=== PATIENT | female | born 1970 | race Native Hawaiian/Other Pacific Islander ===

== ENCOUNTER → 2016-09-16 09:27 | Outpatient (CLI) | payer OTHER, BC | LOC: AMB 09:27 | DX: Z04.1 Encounter for examination and observation following transport accident (principal) ==

== ENCOUNTER 2016-09-16 12:08 | Emergency (ER) | payer BC, OTHER ==
[~2016-09-16] VITALS: Ht 157.5 cm; Wt 102.1 kg
== END 2016-09-16 13:13 | disposition home or self-care (01) ==
LOC: ED 12:08
DX: S60.212A Contusion of left wrist, initial encounter (principal); V49.40XA Driver injured in collision with unspecified motor vehicles in traffic accident, initial encounter; Y92.411 Interstate highway as the place of occurrence of the external cause
CPT/HCPCS: 99282

== ENCOUNTER 2016-11-16 03:18 | Emergency (ER) | payer BC ==
[~2016-11-16] VITALS: Ht 160 cm; Wt 103.4 kg
== END 2016-11-16 06:04 | disposition home or self-care (01) ==
LOC: ED 03:18
DX: N39.0 Urinary tract infection, site not specified (principal)
CPT/HCPCS: 81000; 81025; 96372; 99283; J0696; J1885

== ENCOUNTER 2018-10-11 20:04 | Emergency (ER) | payer BC ==
[~2018-10-11] VITALS: Ht 160 cm; Wt 99.8 kg
[2018-10-11 20:55] LABS: PLATELET COUNT 286 K/uL (152-353)
[2018-10-12] MEDS ORDERED: ONDA4TAB3 PO (00:58)
[2018-10-12 01:23] VITALS: BP 128/72; TEMP 98.2
== END 2018-10-12 01:30 | disposition home or self-care (01) ==
LOC: ED 20:04
PROVIDERS: Student in an Organized Health Care Education/Training Program
DX: R11.2 Nausea with vomiting, unspecified (principal); R19.7 Diarrhea, unspecified; R10.13 Epigastric pain
CPT/HCPCS: 36415; 80053; 81000; 81025; 82150; 83690; 83735; 85027; 87502; 96361; 96374; 99284; J1885; J2270; J2405; J3475; Q9963

== ENCOUNTER 2019-01-11 12:03 | Outpatient (CLI) | payer BC ==
[~2019-01-11 12:03] MED LIST: ONDA4TAB3 PO
== END 2019-01-11 21:15 | disposition home or self-care (01) ==
LOC: RAD 12:03
DX: R10.11 Right upper quadrant pain (principal); R11.0 Nausea